=== PATIENT | male | born 1985 | race American Indian/Alaskan Native ===

== ENCOUNTER 2016-09-06 19:02 | Observation (INO) | payer SELFPAY ==
[2016-09-06 19:12] VITALS: TEMP 99
[2016-09-06 19:14] VITALS: BMI 21.2
[2016-09-06 20:47] VITALS: BP 140/63; PULSE 86; RESP 16; O2SAT 99
--- NOTE | 2016-09-06 21:40 | ED PDOC ---
Arrival/HPI - General Chief Complaint: Psychiatric Evaluation Time Seen by Provider: 09/06/16 19:18 Historian: Patient, Family - History of Present Illness Narrative History of Present Illness (Text): 09/06/16 21:38 Edenilson Sepulveda is a 31 year old male, with a history of substance abuse, presents to the emergency department via ambulance for evaluation following PCP use. Patient denies any somatic or psychological complaints. Symptom Course: Unchanged Severity Level: Mild Activities at Onset: Light Context: Home Past Medical History - Travel History Have you recently traveled outside [place] w/in the past 3 mons?: Yes - Psychiatric Hx Substance Use: Yes (PCP) Family/Social History - Physician Review Nursing Documentation Reviewed: Yes Family/Social History: No Known Family HX Smoking Status: Unknown If Ever Smoked Hx Alcohol Use: No (unable to obtain) Hx Substance Use: Yes (PCP) Allergies/Home Meds Allergies/Adverse Reactions: Allergies Unobtainable Allergy (Verified 09/06/16 19:14) Home Medications: Home Meds Medication Instructions Recorded Confirmed Unobtainable 09/06/16 09/06/16 Review of Systems - Physician Review All systems were reviewed & negative as marked: Yes - Review of Systems Constitutional: Normal. absent: Fatigue, Fevers Respiratory: Normal. absent: SOB, Cough Cardiovascular: Normal. absent: Chest Pain Gastrointestinal: Normal Musculoskeletal: Normal Neurological: Normal. absent: Headache, Dizziness Psychiatric: Normal. absent: Suicidal Ideation Physical Exam Vital Signs Reviewed: Yes Vital Signs Temp Pulse Resp BP Pulse Ox 09/06/16 20:47 86 16 140/63 99 09/06/16 19:11 99 F 90 17 139/74 97 Temperature: Afebrile Blood Pressure: Normal Pulse: Regular Respiratory Rate: Normal Appearance: Positive for: Well-Appearing Pain Distress: None Mental Status: Positive for: Alert and Oriented X 3 Finger Stick Blood Glucose: 98 - Systems Exam Head: Present: Atraumatic, Normocephalic Pupils: Present: PERRL Extroacular Muscles: Present: EOMI Conjunctiva: Present: Normal Mouth: Present: Moist Mucous Membranes Respiratory/Chest: Present: Clear to Auscultation, Good Air Exchange. No: Respiratory Distress, Accessory Muscle Use Cardiovascular: Present: Regular Rate and Rhythm, Normal S1, S2. No: Murmurs Abdomen: Present: Normal Bowel Sounds. No: Tenderness, Distention, Peritoneal Signs Upper Extremity: Present: Normal Inspection. No: Cyanosis, Edema Lower Extremity: Present: Normal Inspection. No: Edema Neurological: Present: GCS=15, CN II-XII Intact, Speech Normal, Motor Func Grossly Intact, Normal Sensory Function Skin: Present: Warm, Dry, Normal Color. No: Rashes Psychiatric: Present: Alert, Oriented x 3. No: Suicidal Ideation, Homicidal Ideation Medical Decision Making ED Course and Treatment: 09/06/16 21:42 Impression: A 31 year old male who presents to the emergency department for evaluation following PCP use. Plan: -- Drug Screen -- Reassess and disposition Progress Notes: 09/06/16 21:[address] patient in EDObs, pending sobriety, reevaluation and reevaluation Re-evaluation Time: 06:26 Reassessment Condition: Re-examined, Improved ED OBSERVATION Discharge: Yes Date of observation admission: 09/06/16 Time of observation admission: 19:35 - Observation admission statement Patient is being placed in observation because:: PCP use - Goals of Observation Goals of observation are:: Awaiting sobriety, reevaluation and disposition - Progress Note Progress Note: 09/07/16 00:34 Patient resting comfortably. Stable vital signs. 09/07/16 02:34 Patient is sleeping with stable vitals. 09/07/16 04:35 Patient is resting comfortably with stable vitals. No new complaints. - Scribe Statement The provider has reviewed the documentation as recorded by the Kaylee Walden Provider Attestation: All medical record entries made by the Symoneibgertrudis were at my direction and personally dictated by me. I have reviewed the chart and agree that the record accurately reflects my personal performance of the history, physical exam, medical decision making, and the department course for this patient. I have also personally directed, reviewed, and agree with the discharge instructions and disposition. Disposition/Present on Arrival - Present on Arrival Any Indicators Present on Arrival: No History of DVT/PE: No History of Uncontrolled Diabetes: No Urinary Catheter: No History of Decub. Ulcer: No History Surgical Site Infection Following: None - Disposition Have Diagnosis and Disposition been Completed?: Yes Diagnosis: Substance abuse Disposition: HOME/ ROUTINE Disposition Time: 06:26 Condition: GOOD
== END 2016-09-07 06:27 | disposition home or self-care (01) ==
LOC: ED 19:02 → MERGE 19:33 → EROBSV 19:33
PROVIDERS: ADMIT Emergency Medicine; ATTEND Emergency Medicine
DX: F16.10 Hallucinogen abuse, uncomplicated (principal)
CPT/HCPCS: 82948; 99284; G0378; G0480